=== PATIENT | male | born 1960 | race Caucasian/White ===

== ENCOUNTER → 2017-05-09 | Outpatient (CLI) | payer OTHER ==
[~2017-05-09] MED LIST: ACETAMINOPHEN500 M6 PO; ALBUTEROL17 GM INH; ASPIRIN PO; ATARAX PO; BENTYL10 M1 PO; BUSPIRONE HCL7.5 MG PO; CARAFATE PO; CENTRUM PO; CLONAZEPAM0.5 MG PO; COLACE PO; DESYREL50 MG PO; FLAGYL PO; FLONASE 0.05% N16 G1; FOLIC ACID PO; GABAPENTIN300 M2 PO; HYDROCODON-ACE1 EAC5 PO; HYDROXYZINE HCL10 MG PO; IBUPROFEN600 MG PO; LEVAQUIN PO; LISINOPRIL10 MG PO; LISINOPRIL5 MG PO; LOPRESSOR PO; METOPROLOL SUCC25 MG PO; METOPROLOL TAR25 MG PO; METOPROLOL TART25 MG PO; METRONIDAZOLE PO; MOBIC15 MG PO; MONTELUKAST SOD10 MG PO; MULTI VITAMIN1 EACH PO; NAPROSYN-EC500 M1 PO; NEXIUM PO; NICOTINE T1 PATCH .2 TOP; NO HOME MEDICATION; NORCO 5/325 TAB1 TAB PO; NORCO1 TAB 10/3 PO; OMEPRAZOLE20 M1 PO; OMEPRAZOLE20 M2 PO; OMEPRAZOLE40 M1 PO; ONDANSETRON ODT4 MG PO; OXYCODONE-ACET1 EAC1 PO; PRAVACHOL20 MG PO; PRILOSEC PO; PRILOSEC20 MG PO; PRIMATENE MIST; PROTONIX PO; SERTRALINE HCL50 M1 PO; SIMETHICONE120 ML PO; SIMETHICONE125 MG PO; SIMVASTATIN10 MG PO; THIAMINE HCL100 MG PO; ULTRAM PO; ZESTRIL5 MG PO; ZITHROMAX500 MG PO; ZOLOFT100 MG PO
--- NOTE | ~2017-05-09 | MR191 ---
[facility] A Service of [facility] & [facility] RADIOLOGY TEXT RESULTS PATIENT: KIMBERLY SHAVER LOCATION: [facility] : 62 UNIT #: [id number] AGE: [address]: Kirill Richmond MD SEX: M ORDER DR: [id number] [facility] [address] [place], [place] [address] [id number] O MR#: [id number] Acc #: [id number] NAME: KIMBERLY SHAVER : 1960 SEX: M STUDY DATE/TIME: 05/09/2017 13:10 UNIT: [facility] ROOM: STUDY DESCRIPTION: MR Shoulder Arthrogram Rt Attending Physician: Kirill Richmond M.D. Referring Physician: Kirill Richmond M.D. Ordering Physician: Kirill Richmond M.D. Primary Care Physician: Primary Care Physician No MRI CENTER REPORT This report is preliminary unless electronic signature is present. EXAM MR arthrogram right shoulder HISTORY 56-year-old male status post revision of rotator cuff repair with graft augmentation September 2016 complains of persistent right shoulder pain. Right shoulder pain for 5-6 years. COMPARISON MR arthrogram right shoulder 08/25/2016. FINDINGS Routine MR arthrogram was performed of the right shoulder following the intraarticular injection of dilute gadolinium. Multiple foci of signal abnormality are noted in the lateral humeral head compatible with rotator cuff repair. Anterior anchor suggests biceps tenodesis. Patient demonstrates an os acromiale. Patient has undergone apparent acromioplasty and distal clavicular resection. Contrast distends the glenohumeral joint with communication to the subacromial-subdeltoid bursa through a defect in the rotator interval and probable full-thickness tear in the anterior distal aspect of the supraspinatus tendon. There is focal imbibition of contrast into the substance of the rotator cuff involving both the supraspinatus and infraspinatus tendons compatible with a sizable partial tear. Full-thickness tear noted along the anterior aspect of the supraspinatus tendon, estimated approximately 1.3 x 1.9 cm. Contrast extends to the subacromial-subdeltoid bursa, with extension to the AC joint and a small amount into the synchondrosis of the os acromiale. No loose body identified. The teres minor tendon appears intact. The subscapularis tendon appears intact. There is fatty atrophy of the teres minor muscle. Truncation of the superior labrum and biceps anchor consistent with debridement and biceps tenodesis. Posterior labrum unremarkable. [facility]. [facility] A Service of [facility] / [facility] RADIOLOGY TEXT RESULTS PATIENT: KIMBERLY SHAVER LOCATION: [facility] : 62 UNIT #: [id number] AGE: [address]: Kirill Richmond MD SEX: M ORDER DR: Articular cartilage appears normal. The deltoid and extraarticular soft tissues unremarkable. IMPRESSION 1. Sizable defect in the rotator interval in the anterior aspect of the supraspinatus tendon measuring about 1.3 x 1.9 cm. This is felt to represent a recurrent tear. There is also a large partial-thickness delaminating tear of the rotator cuff involving both the supraspinatus and infraspinatus tendons measuring up to 2.2 cm in length. 2. Teres minor muscle atrophy. 3. Postsurgical changes from distal clavicular resection, biceps tenodesis. 4. Os acromiale. Dictated by... Lester Huffman M.D. THIS IS AN ELECTRONICALLY VERIFIED REPORT Lester Huffman M.D. at 05/10/2017 7:29 AM MCIK/cece TD: 05/09/2017 21:50 JOB #: [id number] MRI CENTER REPORT Page 1 of 1 COPY
--- NOTE | ~2017-05-09 | XA35 ---
[facility] A Service of [facility] & [facility] RADIOLOGY TEXT RESULTS PATIENT: KIMBERLY SHAVER LOCATION: [facility] : 62 UNIT #: [id number] AGE: [address]: Kirill Richmond MD SEX: M ORDER DR: [id number] [facility] [address] [place], [place] [address] [id number] O MR#: [id number] Acc #: [id number] NAME: KIMBERLY SHAVER : 1960 SEX: M STUDY DATE/TIME: 05/09/2017 12:32 UNIT: [facility] ROOM: STUDY DESCRIPTION: XA Arthrogram Shoulder Rt Attending Physician: Kirill Richmond M.D. Referring Physician: Kirill Richmond M.D. Ordering Physician: Kirill Richmond M.D. Primary Care Physician: Primary Care Physician No MEDICAL IMAGING REPORT This report is preliminary unless electronic signature is present EXAM Right shoulder arthrogram INDICATIONS Right shoulder pain. Previous rotator cuff injury. The fluoroscopy time was 1.6 minutes. The reference air kerma is 16 mGy. PROCEDURE The risks, benefits and alternatives of the procedure were discussed with the patient informed consent was obtained. In the procedure room a time-out was performed confirming correct patient and procedure. All elements of maximum sterile-barrier technique utilized according to guidelines appropriate for the procedure. TECHNIQUE/FINDINGS Skin overlying the right shoulder was prepped and draped in the usual sterile fashion. 1% lidocaine was utilized to anesthetize the skin and underlying subcutaneous tissues. Next under fluoroscopic guidance, 22 gauge needle was advanced into the shoulder joint space using the interval approach. Small amount of contrast was injected confirming satisfactory positioning. Next, approximately 10 mL of a mixture of iodinated contrast, lidocaine, and gadolinium was administered under constant fluoroscopic guidance. The needle was removed and a sterile dressing was applied. Patient tolerated procedure well without immediate complications. Study shows abnormal contrast within the subacromial subdeltoid bursa consistent with a rotator cuff tear. Please refer to MRI for complete details. Dictated by... Troy Huffman M.D. THIS IS AN ELECTRONICALLY VERIFIED REPORT STS. [facility] A Service of [facility] & [facility] RADIOLOGY TEXT RESULTS PATIENT: KIMBERLY SHAVER LOCATION: [facility] : 62 UNIT #: [id number] AGE: [address]: Kirill Richmond MD SEX: M ORDER DR: Troy Huffman M.D. at 05/11/2017 4:01 PM ARS/craigr TD: 05/10/2017 02:15 JOB #: [id number] MEDICAL IMAGING REPORT Page 1 of 1 COPY
== END | disposition home or self-care (01) ==
LOC: CIVR 04-30 11:00
DX: M75.101 Unspecified rotator cuff tear or rupture of right shoulder, not specified as traumatic (principal); M62.58 Muscle wasting and atrophy, not elsewhere classified, other site; M65.811 Other synovitis and tenosynovitis, right shoulder; M75.21 Bicipital tendinitis, right shoulder; Z98.890 Other specified postprocedural states
CPT/HCPCS: 73040; 73222; Q9967